=== PATIENT | female | born 1990 | race Caucasian/White ===

== ENCOUNTER 2018-05-19 16:08 | Observation (INO) | payer MEDICAID, SELFPAY ==
--- NOTE | 2018-05-19 16:47 | PCM.HP.STD ---
<Felicia Nixon - Last Filed: 05/19/18 16:58> Problem List (1) Opioid withdrawal Status: Acute (2) Tobacco dependence Status: Chronic History of Present Illness Date of Admission: 05/19/18 Chief Complaint: Opioid withdrawal The patient is a 27 year old F who presents through [facility] program for opioid withdrawal. Patient states she has used heroin via snorting/inhaling daily for the past 6 years. She denies any IV drug use. Patient reports using 1 g daily. Last use 1:30 AM this morning. She has a history of benzodiazepine use and states she has not used Xanax for approximately 3 weeks. She admits to marijuana use as well. Denies other drug use. Current pack per day smoker. Denies alcohol use. Patient states she has been in detox once in the past and did not maintain sobriety. She currently complains of dry mouth, muscle aches, anxiety and cold sweats. Patient reports she has not had a menstrual cycle in 3-1/2 months. She reports she has been sexually active. Has not taken any home test. Reports a history of childhood asthma. Patient denies any other past medical history. 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 Denies: Fever HEENT: Reports: - - Intermittent tooth pain. Denies: Head Aches, Sinus Congestion, Sinus Drainage Cardiovascular: Denies: Chest Pain, Palpitations Respiratory: Denies: Cough, Shortness of breath at rest, Sputum production Gastrointestinal: Denies: Abdominal Pain, Nausea, Vomiting Genitourinary: Denies: Dysuria Gynecological: Reports: - - Amenorrhea X3.5 months Musculoskeletal: Reports: - - Generalized muscle aching. Denies: Joint Pain, Joint Tenderness Skin: Denies: Rash, Wounds Neurological: Denies: Numbness, Tingling, Focal weakness Psychiatric: Denies: Anxiety, Depression, Homicidal Ideations, Suicidal Ideations Hematologic/ Lymphatic: Denies: Easy Bruising, Easy Bleeding VTE Information - Inpt Only VTE Present on Admission: No VTE Mechan Device Prophylaxis: None VTE Pharm Prophylaxis ordered?: No Reason prophylaxis not ordered:: Treatment Not Indicated Patient Problems: Active and Suspected Problems Opioid withdrawal (Acute) - Physical Exam General: Alert, Oriented x3, Cooperative HEENT: Atraumatic, PERRLA, EOMI, Normocephalic Oral: - - Poor dentition Neck: Supple, No JVD, Negative Carotid Bruits Lungs: Clear to auscultation, Normal air movement Cardiovascular: Regular rate, Regular Rhythm, Normal S1, Normal S2, No murmurs Abdomen: Bowel Sounds Present, Soft, Non Tender, Non-Distended Extremities: No clubbing, No cyanosis, No edema, Capillary Refill Less than 3 Seconds Skin: No rashes, No breakdown Musculoskeletal: No Tenderness to Palpation of Joints or Extremities Neurological: Cranial nerves II-XII grossly intact, Neuro grossly intact Psych/Mental Status: Normal Affect, Appropriate Assessment/Plan All Active Problems Opioid withdrawal (Acute) 1. Opioid withdrawal-medical stabilization per protocol. Obtain urine drug screen and urine . Patient reports no menstrual cycle for the past 3.5 months. Check CBC, CMP. 2. Marijuana use-encouraged cessation. 3. Tobacco dependence-encouraged smoking cessation. Nicotine replacement patch. 4. History of asthma-no acute exacerbation. DVT prophylaxis-not indicated, low risk. This patient was seen by TASH Dykes under the supervision of Dr. Jones. <Demond Jones - Last Filed: 05/19/18 17:12> Problem List (1) Opioid withdrawal Status: Acute History of Present Illness The patient is a 27 year old F presents with a myriad of complaints. Patient complains of myalgias, abdominal cramps, back cramps, restless legs. Patient snorts heroin, last use was late last night. Patient requesting further treatment for opiate withdrawal. Patient to be admitted with the medical stabilization protocol through [facility]. 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 Denies: Fever HEENT: Reports: -. Denies: Head Aches, Sinus Congestion, Sinus Drainage Cardiovascular: Denies: Chest Pain, Palpitations Respiratory: Denies: Cough, Shortness of breath at rest Gastrointestinal: Denies: Abdominal Pain, Nausea, Vomiting Genitourinary: Denies: Dysuria Gynecological: Reports: - Musculoskeletal: Reports: -. Denies: Joint Pain, Joint Tenderness Skin: Denies: Rash, Wounds Neurological: Denies: Focal weakness, Numbness, Tingling Psychiatric: Denies: Anxiety, Depression, Homicidal Ideations, Suicidal Ideations Hematologic/ Lymphatic: Denies: Easy Bruising, Easy Bleeding Comment: A 10 point review of systems were negative except as mentioned in the history of present illness and the other review of systems. VTE Information - Inpt Only VTE Present on Admission: No VTE Mechan Device Prophylaxis: None VTE Pharm Prophylaxis ordered?: No Reason prophylaxis not ordered:: Treatment Not Indicated - Physical Exam General: Alert, Cooperative, No apparent distress HEENT: Atraumatic, Normocephalic Oral: Moist Mucosa, No Gingival or Mucosal Lesions/ Ulcerations, - Neck: Supple, Negative Carotid Bruits Lungs: Clear to auscultation, Normal air movement, No rhonchi, No wheeze Cardiovascular: Regular rate, Regular Rhythm, Normal S1, Normal S2, No murmurs Abdomen: Bowel Sounds Present, Soft, Non Tender, Non-Distended, No Hepato-splenomegaly Extremities: No edema, No Calf Tenderness Skin: No rashes, No breakdown Psych/Mental Status: Normal Affect, Appropriate Vital Signs Temp Pulse Resp BP Pulse Ox 36.7 C 80 18 106/61 100 05/19/18 17:04 05/19/18 17:04 05/19/18 17:04 05/19/18 17:04 05/19/18 17:04 Oxygen Delivery Method Room Air Assessment/Plan Patient seen and examined independently. Data reviewed. I agree with the above note by the nurse practitioner. 1. Acute opiate withdrawal Patient's treatment plan is given be pending her test, however buprenorphine can be given to patients who are with low risk of harm. Patient have other agents available for other somatic complaints, but this again, will need to be modified if the patient is . Code Visit Inpatient E&M: 87486 Init Hosp L2
--- NOTE | 2018-05-19 16:52 | HP.PCM_ITS ---
<Felicia Nixon - Last Filed: 05/19/18 16:58> Problem List (1) Opioid withdrawal Status: Acute (2) Tobacco dependence Status: Chronic History of Present Illness Date of Admission: 05/19/18 Chief Complaint: Opioid withdrawal The patient is a 27 year old F who presents through [facility] program for opioid withdrawal. Patient states she has used heroin via snorting/inhaling daily for the past 6 years. She denies any IV drug use. Patient reports using 1 g daily. Last use 1:30 AM this morning. She has a history of benzodiazepine use and states she has not used Xanax for approximately 3 weeks. She admits to marijuana use as well. Denies other drug use. Current pack per day smoker. Denies alcohol use. Patient states she has been in detox once in the past and did not maintain sobriety. She currently complains of dry mouth, muscle aches, anxiety and cold sweats. Patient reports she has not had a menstrual cycle in 3-1/2 months. She reports she has been sexually active. Has not taken any home test. Reports a history of childhood asthma. Patient denies any other past medical history. 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 Denies: Fever HEENT: Reports: - - Intermittent tooth pain. Denies: Head Aches, Sinus Congestion, Sinus Drainage Cardiovascular: Denies: Chest Pain, Palpitations Respiratory: Denies: Cough, Shortness of breath at rest, Sputum production Gastrointestinal: Denies: Abdominal Pain, Nausea, Vomiting Genitourinary: Denies: Dysuria Gynecological: Reports: - - Amenorrhea X3.5 months Musculoskeletal: Reports: - - Generalized muscle aching. Denies: Joint Pain, Joint Tenderness Skin: Denies: Rash, Wounds Neurological: Denies: Numbness, Tingling, Focal weakness Psychiatric: Denies: Anxiety, Depression, Homicidal Ideations, Suicidal Ideations Hematologic/ Lymphatic: Denies: Easy Bruising, Easy Bleeding VTE Information - Inpt Only VTE Present on Admission: No VTE Mechan Device Prophylaxis: None VTE Pharm Prophylaxis ordered?: No Reason prophylaxis not ordered:: Treatment Not Indicated Patient Problems: Active and Suspected Problems Opioid withdrawal (Acute) - Physical Exam General: Alert, Oriented x3, Cooperative HEENT: Atraumatic, PERRLA, EOMI, Normocephalic Oral: - - Poor dentition Neck: Supple, No JVD, Negative Carotid Bruits Lungs: Clear to auscultation, Normal air movement Cardiovascular: Regular rate, Regular Rhythm, Normal S1, Normal S2, No murmurs Abdomen: Bowel Sounds Present, Soft, Non Tender, Non-Distended Extremities: No clubbing, No cyanosis, No edema, Capillary Refill Less than 3 Seconds Skin: No rashes, No breakdown Musculoskeletal: No Tenderness to Palpation of Joints or Extremities Neurological: Cranial nerves II-XII grossly intact, Neuro grossly intact Psych/Mental Status: Normal Affect, Appropriate Assessment/Plan All Active Problems Opioid withdrawal (Acute) 1. Opioid withdrawal-medical stabilization per protocol. Obtain urine drug screen and urine . Patient reports no menstrual cycle for the past 3.5 months. Check CBC, CMP. 2. Marijuana use-encouraged cessation. 3. Tobacco dependence-encouraged smoking cessation. Nicotine replacement patch. 4. History of asthma-no acute exacerbation. DVT prophylaxis-not indicated, low risk. This patient was seen by TASH Dykes under the supervision of Dr. Jones. <Demond Jones - Last Filed: 05/19/18 17:12> Problem List (1) Opioid withdrawal Status: Acute History of Present Illness The patient is a 27 year old F presents with a myriad of complaints. Patient complains of myalgias, abdominal cramps, back cramps, restless legs. Patient snorts heroin, last use was late last night. Patient requesting further treatment for opiate withdrawal. Patient to be admitted with the medical stabilization protocol through [facility]. 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 Denies: Fever HEENT: Reports: -. Denies: Head Aches, Sinus Congestion, Sinus Drainage Cardiovascular: Denies: Chest Pain, Palpitations Respiratory: Denies: Cough, Shortness of breath at rest Gastrointestinal: Denies: Abdominal Pain, Nausea, Vomiting Genitourinary: Denies: Dysuria Gynecological: Reports: - Musculoskeletal: Reports: -. Denies: Joint Pain, Joint Tenderness Skin: Denies: Rash, Wounds Neurological: Denies: Focal weakness, Numbness, Tingling Psychiatric: Denies: Anxiety, Depression, Homicidal Ideations, Suicidal Ideations Hematologic/ Lymphatic: Denies: Easy Bruising, Easy Bleeding Comment: A 10 point review of systems were negative except as mentioned in the history of present illness and the other review of systems. VTE Information - Inpt Only VTE Present on Admission: No VTE Mechan Device Prophylaxis: None VTE Pharm Prophylaxis ordered?: No Reason prophylaxis not ordered:: Treatment Not Indicated - Physical Exam General: Alert, Cooperative, No apparent distress HEENT: Atraumatic, Normocephalic Oral: Moist Mucosa, No Gingival or Mucosal Lesions/ Ulcerations, - Neck: Supple, Negative Carotid Bruits Lungs: Clear to auscultation, Normal air movement, No rhonchi, No wheeze Cardiovascular: Regular rate, Regular Rhythm, Normal S1, Normal S2, No murmurs Abdomen: Bowel Sounds Present, Soft, Non Tender, Non-Distended, No Hepato- splenomegaly Extremities: No edema, No Calf Tenderness Skin: No rashes, No breakdown Psych/Mental Status: Normal Affect, Appropriate Vital Signs Temp Pulse Resp BP Pulse Ox 36.7 C 80 18 106/61 100 05/19/18 17:04 05/19/18 17:04 05/19/18 17:04 05/19/18 17:04 05/19/18 17:04 Oxygen Delivery Method Room Air Assessment/Plan Patient seen and examined independently. Data reviewed. I agree with the above note by the nurse practitioner. 1. Acute opiate withdrawal Patient's treatment plan is given be pending her test, however buprenorphine can be given to patients who are with low risk of harm. Patient have other agents available for other somatic complaints, but this again, will need to be modified if the patient is . Code Visit Inpatient E&M: 76999 Init Hosp L2
[2018-05-19 17:04] VITALS: BP 106/61; PULSE 80; RESP 18; TEMP 36.7; O2SAT 100
[2018-05-19 17:05] VITALS: BMI 18.6
[2018-05-19 17:10] VITALS: BMI 18.6
[2018-05-19] MEDS: Lactated Ringers 1,000 ML 125 ML IV (17:30)
[2018-05-19 17:36] LABS: ALB/GLOB Ratio 1.3 RATIO (0.9-2.4); AST(SGOT) 13 U/L (15-37); Alanine Aminotransfer ALT/SGPT 23 U/L (13-56); Albumin, Serum 3.6 g/dL (3.2-5.0); Alkaline Phosphatase 54 U/L (45-117); Anion Gap 6 (5-15); BUN 5 mg/dL (7-18); BUN/Creat Ratio 11.8 RATIO (10-20); Calcium,Total 8.3 mg/dL (8.5-10.1); Chloride 106 mmol/L (98-107); Creatinine, Serum 0.42 mg/dL (0.55-1.02); EST Glomerular Filtration Rate 189 mL/min (>60); Est Glom Filt Rate - Afr Amer 229 mL/min (>60); Estimated Creatinine Clearance 171.44 ml/min; Globulin 2.7 g/dL (2.2-4.2); Glucose 85 mg/dL (74-106); Potassium 3.4 mmol/L (3.5-5.1); Protein, Total 6.3 g/dL (6.4-8.2); Sodium Level 139 mmol/L (136-145)
[2018-05-19 17:39] LABS: Absolute Lymphocyte Count 2.46 X10^3/ul (0.83-4.51); Absolute Neutrophil Count 4.6 X10^3/uL (2.0-7.7); Basophil# 0.01 X10^3/uL; Basophil% 0.1 % (0-1); Eosinophil# 0.29 X10^3/uL; Eosinophils% 3.7 % (0-5); Hematocrit 41.5 % (37-47); Hemoglobin 13.8 g/dl (12.0-15.0); Lymphocyte # 2.46 X10^3/ul (4.0); Lymphocyte % 31.3 % (19-41); Mean Corp Hgb Conc 33.3 g/gl (32-36); Mean Corpuscular Hgb 28.6 pg (27.0-32.0); Mean Corpuscular Volume 85.9 fL (81-99); Monocyte# 0.53 X10^3/uL; Monocyte% 6.7 % (0-10); Neutrophil # 4.57 X10^3/uL (2.7-7.7); Neutrophil % 58.2 % (47-70); Platelet Count 211 K/mm3 (150-450); RBC Distribution Width CV 14.1 % (11.6-14.6); RBC Distribution Width SD 44.4 fl (35.1-43.9); Red Blood Count 4.83 M/mm3 (4.2-5.4); White Blood Count 7.9 K/mm3 (4.4-11.0)
[2018-05-19 17:57] LABS: POSITIVE COUNT NO; POSITIVE DIFFERENTIAL NO; POSITIVE MORPHOLOGY NO
[2018-05-19 18:35] LABS: Amphetamine Urine VISTA POSITIVE (<1000 ng/mL); Barbiturate Urine VISTA NEGATIVE (< 200 ng/mL); Benzodiazepine Urine VISTA NEGATIVE (< 200 ng/mL); Cocaine Urine VISTA NEGATIVE (< 300 ng/mL); Ecstacy Urine VISTA POSITIVE (< 500 ng/mL); Methadone Urine VISTA NEGATIVE (< 300 ng/mL); PCP Urine VISTA NEGATIVE (< 25 ng/mL); THC Urine VISTA POSITIVE (< 50 ng/mL); Vista UDS pH Range 5
[2018-05-19 18:47] LABS: Pregnancy, Serum, hCG Quali. POSITIVE Negative (0-9 Nonpreg)
--- NOTE | 2018-05-19 19:50 | NURSING ---
nursing supv aware of positive preg test and that [employer] has spoken with [facility] since that hospital does detox for .
--- NOTE | 2018-05-19 19:51 | NURSING ---
spoke with eric at [facility] ([phone]) who will speak with OB dr and call [facility] back.
--- NOTE | 2018-05-19 20:18 | NURSING ---
spoke to eric at [facility] Dr. Elena Baer OB will admit pt. Pt to go directly to OB triage. Pt notified and has a ride here. Dr. Jones paged for dc order.
--- NOTE | 2018-05-19 20:28 | DCINST_ITS ---
- Discharge Diagnoses Current Active Problems: Current Active and Chronic Problems Opioid withdrawal (Acute) Tobacco dependence (Chronic) You will use the following diet at home:: No restrictions Your food should be the consistency of: Regular Allergies/Adverse Reactions: Allergies amoxicillin Adverse Reaction (Verified 05/19/18 17:19) Hives erythromycin base Adverse Reaction (Verified 05/19/18 17:19) Hives Medications to take at Discharge NK 05/19/18 Primary Care Physician: Care Physician,No Primary [Primary Care Provider] - Test Results: Test results from this visit will be discussed in further detail at your follow- up appointment, if applicable. Proposed Discharge Date: 05/19/18
--- NOTE | 2018-05-19 20:28 | PCM.DC.SUM ---
Discharge Date and Diagnosis - Problem List Patient Problems: Active and Suspected Problems (Acute) Opioid withdrawal (Acute) Date of Admission: 05/19/18 Date of Discharge: 05/19/18 - Primary Discharge Diagnosis Active and Suspected Problems (Acute) Opioid withdrawal (Acute) - Secondary Discharge Diagnosis Chronic Problems Tobacco dependence (Chronic) Hospital Course and Treatment Operations: None Procedures: None Summary of Care Provided: The patient is a 27 year old F resented seeking acute treatment for opiate withdrawal. Patient was admitted and under workup, and given her age patient underwent a test. The patency test came back positive. Patient's last menstrual period was roughly 3-3-1/2 months ago. Discussed with the susanne Henao [facility], who contacted [facility]. They spoke to a Dr. Elena Baer, who advised patient be discharged and then for her to show up to OB triage and then they will further assess her for her and opiate withdrawal. Patient being discharged in stable condition. This is not a direct transfer but a discharge and then patient will present to the other hospital through their OB triage. [] Patient Problems: Active and Suspected Problems (Acute) Opioid withdrawal (Acute) - Physical Exam Vital Signs Temp Pulse Resp BP Pulse Ox 36.7 C 80 18 106/61 100 05/19/18 17:04 05/19/18 17:04 05/19/18 17:04 05/19/18 17:04 05/19/18 17:04 Oxygen Delivery Method Room Air Weight: 53.977 kg Body Mass Index (BMI) 18.6 Laboratory Tests Past 24 Hrs 05/19/18 05/19/18 05/19/18 16:50 17:00 17:00 WBC 7.9 RBC 4.83 Hgb 13.8 Hct 41.5 MCV 85.9 MCH 28.6 MCHC 33.3 RDW 14.1 RDW Differential 44.4 H Plt Count 211 MPV 10.0 Immature Gran % (Auto) 0.000 Neut % (Auto) 58.2 Lymph % (Auto) 31.3 Morrow % (Auto) 6.7 Eos % (Auto) 3.7 Baso % (Auto) 0.1 Absolute Neuts (auto) 4.6 Absolute Lymphs (auto) 2.46 Total Counted Not Reportable Sodium 139 Potassium 3.4 L Chloride 106 Carbon Dioxide 27.0 Anion Gap 6 BUN 5 L Creatinine 0.42 L Estim Creat Clear Calc 171.44 Est GFR (MDRD) Af Amer 229 Est GFR (MDRD) Non-Af 189 BUN/Creatinine Ratio 11.8 Glucose 85 Calcium 8.3 L Total Bilirubin 0.30 AST 13 L ALT 23 Alkaline Phosphatase 54 Total Protein 6.3 L Albumin 3.6 Globulin 2.7 Albumin/Globulin Ratio 1.3 HCG, Quant Serum , Qual Urine Opiates Screen NEGATIVE Urine Methadone Screen NEGATIVE Ur Barbiturates Screen NEGATIVE Ur Phencyclidine Scrn NEGATIVE Ur Amphetamines Screen POSITIVE H U Methamphetamin-MDMA POSITIVE H U Benzodiazepines Scrn NEGATIVE Urine Cocaine Screen NEGATIVE U Cannabinoids Screen POSITIVE H Ur Drug Screen Comment 05/19/18 05/19/18 17:00 17:00 WBC RBC Hgb Hct MCV MCH MCHC RDW RDW Differential Plt Count MPV Immature Gran % (Auto) Neut % (Auto) Lymph % (Auto) Morrow % (Auto) Eos % (Auto) Baso % (Auto) Absolute Neuts (auto) Absolute Lymphs (auto) Total Counted Sodium Potassium Chloride Carbon Dioxide Anion Gap BUN Creatinine Estim Creat Clear Calc Est GFR (MDRD) Af Amer Est GFR (MDRD) Non-Af BUN/Creatinine Ratio Glucose Calcium Total Bilirubin AST ALT Alkaline Phosphatase Total Protein Albumin Globulin Albumin/Globulin Ratio HCG, Quant 95350 H Serum , Qual POSITIVE H Urine Opiates Screen Urine Methadone Screen Ur Barbiturates Screen Ur Phencyclidine Scrn Ur Amphetamines Screen U Methamphetamin-MDMA U Benzodiazepines Scrn Urine Cocaine Screen U Cannabinoids Screen Ur Drug Screen Comment Discharge Diet: No Restrictions Discharge Activity: Return to Normal Activity Home Medications: Medications to take at Discharge NK 05/19/18 Primary Care Physician: Care Physician,No Primary [Primary Care Provider] - Disposition: Acute care Hospital Minutes spent on discharge:: 40 Patient Condition:: Good Medical Necessity - Tobacco Use Smoking Status: Current every day smoker Tobacco Use: Cigarettes Meaningful Use Info Meaningful Use Diagnoses (Choose all that apply): None applicable Code Visit OBSV E&M: 51063 Observ/hosp same date L3
[2018-05-19 20:51] VITALS: BP 119/80; PULSE 95; RESP 16; TEMP 36.5; O2SAT 94
== END 2018-05-19 20:55 | disposition home or self-care (01) ==
DX: O99.320 Drug use complicating pregnancy, unspecified trimester (principal); F11.23 Opioid dependence with withdrawal; Z3A.00 Weeks of gestation of pregnancy not specified; F17.210 Nicotine dependence, cigarettes, uncomplicated
CPT/HCPCS: 36415; 80053; 80307; 84702; 84703; 85025; 96360; 96361; 99218; J7120; G0378; G0379